=== PATIENT | male | born 1965 | race Caucasian/White ===

== ENCOUNTER → 2022-03-16 | Outpatient (CLI) | payer OTHER ==
--- NOTE | 2022-03-16 16:54 | Diagnostic Imaging Report ---
EXAMINATION: PET/CT. INDICATION: Esophageal cancer. Height 5' 9" Weight 192 Blood glucose 103 EXAMINATION: After intravenous administration of 14.71 mCi of F18-FDG injected in the right antecubital fossa, a series of overlapping emission and transmission PET images was obtained. In the coronal, transaxial, and sagittal planes, the area imaged extended from the skull base through the upper thighs. COMPARISON: There are no previous PET/CT exams or cross-sectional imaging studies available for comparison. FINDINGS: There is a 1.1 x 1.6 cm hypermetabolic node along the right lateral aspect of the esophagus at the level of the thoracic inlet. This has a maximum SUV of 6.15 and consequently should be considered neoplastic until proven otherwise. There is no other hypermetabolic activity to suggest the presence of malignancy. Physiologic activity is seen in the brain, kidneys, bowel, and bladder. The CT images fail to show any sign of an acute abnormality. There is diverticulosis of the sigmoid and descending colon but there is no sign of acute diverticulitis. IMPRESSION: 1. There is a small hypermetabolic node adjacent to the esophagus on the right at the level of the thoracic inlet. This node should be considered neoplastic until proven otherwise. 2. There is no other hypermetabolic activity to suggest the presence of malignancy. 3. There is no acute abnormality identified. Dictated by: Dictated on workstation # [id number]
== END ==
LOC: RAD 09:15
PROVIDERS: ATTEND Internal Medicine Hematology & Oncology
DX: C15.9 Malignant neoplasm of esophagus, unspecified (principal)
CPT/HCPCS: 78815; A9552

== ENCOUNTER → 2023-01-14 | Outpatient (CLI) | payer OTHER ==
[~2023-01-14] MED LIST: CATHETER FLUSH 10 ML SYR IVP PRN
--- NOTE | 2023-01-15 10:42 | Diagnostic Imaging Report ---
INDICATION: Esophageal carcinoma, subsequent staging of the lower third of the esophagus. TECHNIQUE: Serum blood glucose level was 83 mg/dL. Patient was administered 10.6 mCi F-18 FDG intravenously in the right antecubital location and PET imaging was performed from the top of the skull to mid thighs. Noncontrast CT was also performed for attenuation correction and anatomic correlation. CORRELATION is made with an outside CT study performed 11/16/2022 and prior PET/CT from 03/16/2022. FINDINGS: There is symmetric activity throughout the brain. Soft tissues of the neck are unremarkable. There is a hypermetabolic mass in the high right superior mediastinum right paratracheal location, corresponding with the soft tissue mass noted on recent CT. SUV max is 12.4. No other mediastinal hypermetabolic foci are seen. Jessica are unremarkable. No pulmonary parenchymal hypermetabolism is detected. Postop changes from gastric pull-through are noted. Physiologic activity throughout the gastrointestinal and genitourinary tracts is noted. No suspicious hypermetabolic foci in the abdomen or pelvis are identified. IMPRESSION: Hypermetabolic mass in the right paratracheal superior mediastinum corresponding with the mass noted on recent CT and suggestive of metastatic adenopathy. No other areas of hypermetabolism are identified. Dictated by: Dictated on workstation # [id number]
== END ==
LOC: RAD 07:39
PROVIDERS: ATTEND Internal Medicine Hematology & Oncology
DX: C15.5 Malignant neoplasm of lower third of esophagus (principal)
CPT/HCPCS: 82947